=== PATIENT | male | born 1945 | race Caucasian/White ===

== ENCOUNTER 2020-12-06 11:58 | Outpatient (CLI) | payer OTHER | END 2020-12-06 12:05 | disposition home or self-care (01) | LOC: TOM 11:58 | PROVIDERS: ATTEND Internal Medicine Cardiovascular Disease | DX: I63.50 Cerebral infarction due to unspecified occlusion or stenosis of unspecified cerebral artery (principal) ==

== ENCOUNTER → 2021-09-25 | Outpatient (CLI) | payer OTHER | END | disposition home or self-care (01) | LOC: TOM 09:10 | PROVIDERS: ATTEND Urology | DX: C61 Malignant neoplasm of prostate (principal) ==

== ENCOUNTER 2021-10-29 09:52 | Outpatient (CLI) | payer OTHER | END 2021-10-29 10:06 | disposition home or self-care (01) | LOC: NUCLEAR 09:52 | PROVIDERS: ATTEND Internal Medicine Cardiovascular Disease | DX: I27.24 Chronic thromboembolic pulmonary hypertension (principal) ==